=== PATIENT | male | born 2000 | race Caucasian/White ===

== ENCOUNTER 2020-01-08 10:16 | Day surgery (SDC) | payer MEDICAID ==
[~2020-01-08] VITALS: Ht 177.8 cm; Wt 117.9 kg
[2020-01-08] MEDS ORDERED: LACTATED RINGERS 1,000 ML IV SCH (11:15)
[2020-01-08 12:13] LABS: BASOPHILS % 0.6 % (0.0-2.0); EOSINOPHILS % 1.2 % (0.0-5.0); HEMATOCRIT. 49.9 % (42.0-52.0); HEMOGLOBIN. 16.8 g/dL (14.0-18.0); LYMPHOCYTES % 19.1 % (20.0-50.0); MEAN CORPUSCULAR VOLUME 88.9 fL (80.0-94.0); MEAN PLATELET VOLUME 7.6 fl (7.4-10.4); MONOCYTES % 6.1 % (2.0-8.0); PLATELET 227 x1000/uL (130-400); RED BLOOD CELL COUNT 5.61 mill/uL (4.7-6.1); RED CELL DISTRIBUTION WIDTH 13.7 % (11.6-14.6)
[2020-01-08 12:29] LABS: CHLORIDE 104 mEq/L (98-107)
[2020-01-08 12:35] LABS: PARTIAL THROMBOPLASTIN TIME 31.3 sec (23.4-31.0); PROTHROMBIN TIME 10.8 sec (9.6-11.0)
[2020-01-08 12:41] LABS: *AMPHETAMINES SCREEN URINE NEGATIVE (NEGATIVE); *BARBITURATES SCREEN URINE NEGATIVE (NEGATIVE); *COCAINE SCREEN URINE NEGATIVE (NEGATIVE)
[2020-01-08 12:42] LABS: CANNABINOID URINE SCREEN PRESUMTIVE POSITIVE (NEGATIVE); METHADONE URINE SCREEN NEGATIVE (NEGATIVE); OPIATES URINE SCREEN NEGATIVE (NEGATIVE); PHENCYCLIDINE URINE SCREEN NEGATIVE (NEGATIVE)
[2020-01-08] MEDS ORDERED: SIMETHICONE 40 MG/0.6 ML 30ML ONE (12:42)
[2020-01-08 12:44] LABS: *BENZODIAZEPINES SCREEN URINE NEGATIVE (NEGATIVE)
[2020-01-08] MEDS ORDERED: PROPOFOL 200MG/20ML VIAL IV ONE ×2 (12:47→13:07)
[2020-01-08] MEDS ORDERED: MIDAZOLAM HCL 5 MG/5 ML VIAL ONE (12:47)
[2020-01-08] MEDS ORDERED: FENTANYL CITRATE/PF 50MCG/ML 2ML VIAL ONE (13:05)
== END 2020-01-08 15:00 | disposition home or self-care (01) ==
LOC: OR 10:16
PROVIDERS: ATTEND Internal Medicine Gastroenterology
DX: K52.9 Noninfective gastroenteritis and colitis, unspecified (principal); K62.5 Hemorrhage of anus and rectum; K29.60 Other gastritis without bleeding; Z80.0 Family history of malignant neoplasm of digestive organs; F10.20 Alcohol dependence, uncomplicated; K21.9 Gastro-esophageal reflux disease without esophagitis
CPT/HCPCS: 36415; 43239; 45380; 80048; 80305; 85025; 85610; 85730; 88305; 88312; 88313; J2250; J2704; J3010